=== PATIENT | male | born 1970 | race Caucasian/White ===

== ENCOUNTER 2024-02-19 03:58 | Emergency (ER) | payer BC ==
[~2024-02-19] VITALS: Ht 190.5 cm; Wt 104.3 kg
[2024-02-19] MEDS ORDERED: Morphine Sulfate 4 MG/1 ML Injection IM ONE (06:35)
[2024-02-19] MEDS ORDERED: OxyCODONE 10/Acetamin 325 TABLET PO ONE (08:45)
[2024-02-19] MEDS ORDERED: Ketorolac Tromethamine 15mg Vial IM ONE (08:45)
[2024-02-19] MEDS ORDERED: Amoxicillin/Clavulanate K 875 MG Tab PO ONE (08:45)
[2024-02-19] MEDS ORDERED: IBUP600 PO (08:56)
[2024-02-19] MEDS ORDERED: Percocet 5-3251 EACH PO (08:56)
[2024-02-19] MEDS ORDERED: AMOCLA875 PO (08:56)
[2024-02-19] MEDS ORDERED: ACET500 PO (08:56)
== END 2024-02-19 09:17 | disposition home or self-care (01) ==
LOC: ER 03:58 → EDBD 03:58 → ER 09:17
DX: S02.69XA Fracture of mandible of other specified site, initial encounter for closed fracture (principal); Y04.0XXA Assault by unarmed brawl or fight, initial encounter
CPT/HCPCS: 70450; 70486; 96372; 99284-25; A9270; J1885